=== PATIENT | male | born 1970 | race Caucasian/White ===

== ENCOUNTER 2021-03-27 07:43 | Outpatient (RCR) | payer OTHER, SELFPAY ==
[2021-03-27 08:07] VITALS: BP 169/96; PULSE 87; RESP 16; TEMP 36; BMI 45.1
--- NOTE | 2021-03-27 09:40 | PCM.WC.HP ---
History of Present Illness Date of Service: 03/27/21 Chief Complaint: Right leg wounds History of Wound: The patient is a pleasant 50-year-old male who presents to the wound healing center as a new patient for evaluation of right lower leg ulcers and cellulitis. He has a past medical history significant for obesity, hypertension, and hyperlipidemia. In recent years, he has lost over 100 pounds, and states that his hypertension has been well controlled without medication since his weight loss. He does not smoke tobacco, but uses chewing tobacco. 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 He states that in December 2020 while on vacation, he scratched his right lower leg on a paul which resulted in a very small laceration. In the week that followed, he was frequently swimming in the ocean. He later developed non-healing wounds of the right lower extremity. In recent weeks, he developed a rash of the right lower extremity, as well as blisters of the right lower extremity. He was started on Bactrim by his primary care provider (Dr. Kramer), but this was not of benefit for his cellulitis. He was then started on Augmentin and clindamycin. He has completed Augmentin. He has 1 more dose of clindamycin remaining, and feels this has been of most benefit for his cellulitis. He has not had any cultures of his right lower extremity wounds. He has been soaking his right lower extremity in Epsom salts. He has been applying Neosporin anti-itch ointment to his right lower extremity. He reports drainage from his right lower extremity, and that his socks are wet when removed. He reports eating a high-protein diet. He has not had any recent blood work completed, aside from a finger prick test done by his primary care provider, after which he was told he is non-diabetic; I presume this was an A1c, but no documentation is available. He has varicosities of the bilateral lower extremities. He does not use compression. He does not frequently elevate his legs. His job requirements involve frequent standing or dangling of legs. He sleeps in a bed at night. The patient denies fever, chills, general malaise, or poor appetite. The patient has not had increased redness, swelling, or purulent/malodorous drainage from affected area. 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 Home Medications ascorbic acid (vitamin C) [Vitamin C] 500 mg PO DAILY 03/27/21 [History Last Taken Unknown] garlic 1,000 mg PO DAILY 03/27/21 [History Last Taken Unknown] multivitamin [Multi-Daily] 1 tab PO DAILY 03/27/21 [History Last Taken Unknown] omega 7-[id number]-fish oil [Fish Oil] 1 cap PO DAILY 03/27/21 [History Last Taken Unknown] vitamin B complex [B Complex-Vitamin B12] 1 tab PO DAILY 03/27/21 [History Last Taken Unknown] Allergy/AdvReac Type Severity Reaction Status Date / Time No Known Allergies Allergy Verified 03/27/21 08:25 Social History Smoking Status: Never smoker ROS Constitutional Constitutional: Denies chills, fever(s) or night sweats Eyes Eyes: Denies change in vision or double vision ENT HEENT: Denies lip swelling or tongue swelling Cardiovascular Cardiovascular: Denies chest pain, leg edema or palpitations Respiratory/Chest Respiratory/Chest: Denies cough, shortness of breath at rest, shortness of breath with exertion or wheezing Gastrointestinal Gastrointestinal: Denies diarrhea, nausea or vomiting Genitourinary Genitourinary: Denies dysuria or hematuria Musculoskeletal Musculoskeletal: Denies abnormal gait, extremity pain, muscle weakness, numbness or tingling Integumentary Integumentary: Reports pruritus, rash, skin ulcer and wounds Neurologic Neurologic: Denies abnormal gait, abnormal speech or focal weakness Endocrine Endocrinology: Denies cold intolerance, heat intolerance, polydipsia or polyuria Hematologic/Lymphatic Hematologic/Lymphatic: Denies easy bleeding or easy bruising Vital Signs Vital Signs Vital Signs: 03/27/21 08:07 Temperature 96.8 F L Temperature Source Temporal Pulse Rate 87 Respiratory Rate 16 Blood Pressure 169/96 H Blood Pressure Mean 120 Blood Pressure Source Monitor Blood Pressure Position Sitting Blood Pressure Location Left Arm Oxygen Delivery Method Room Air Weight Weight: 315 lb Body Mass Index (BMI) 45.1 Physical Exam Const alert, no apparent distress and healthy appearing General Appearance: cooperative, comfortable and well kempt HEENT Head and Scalp: normocephalic and atraumatic Eyes EOMs intact bilaterally Neck supple and no JVD Resp normal respiratory effort, normal air movement and no use of accessory muscles Auscultation: clear to auscultation bilaterally; Negative for crackles, rales, rhonchi or wheezes Cardio regular rate and regular rhythm GI normal to inspection, nondistended, normoactive bowel sounds Extremity normal capillary refill, no joint enlargement, no calf tenderness and no pedal edema General Extremity: edema bilateral lower extremity Details: moderate (2+); Negative for clubbing or cyanosis Peripheral Pulses: Yes dorsalis pedis pulses present bilateral 2+ Skin General Skin Exam: dry skin and excoriation(s) Wounds: wounds noted No malodorous Wound Narrative: Large area of excoriation on the medial right lower leg, without any open ulcerations. Very erythematous and dry/scaly. Tender to palpation. Lateral right lower leg ulcer with subcutaneous layer exposed. No tunneling, undermining, or probing to bone. Moderate amount of slough and devitalized tissue present. No purulent/malodorous drainage. Mild periulcer erythema. Tenderness on debridement/palpation. Neuro oriented x3, moves all extremities and no focal motor deficits Psych mental status grossly normal, cooperative and affect normal Debridement Note Debridement Note Wound debrided: Lateral RLE Laterality: Right Type of Debridement: Excisional debridement Anesthesia Used: 4% Lidocaine Solution Depth: in the subcutaneous layer Percentage of wound debrided: 100 Instrument Used: 3mm curette Tissue Removed: Slough and devitalized tissue Severity: Fat Layer Exposed Amount of bleeding with debridement: Mild Bleeding Controlled with: Pressure Patient tolerated procedure: Patient tolerated procedure well Post-Debridement Measurements and Additional Note: Post-Debridement Measurements/Treatment - Nurse 1 - General Ulcer Assessment Start: 03/27/21 08:01 Freq: Status: Active Protocol: ASHLYN.TRUNG Activity Type Activity Date Activity User E-Sign Co-Sign Detail Recorded Client Recorded Date Recorded By Document 03/27/21 08:07 [facility] [id number] 03/27/21 08:21 [facility] 03/27/21 08:07 - Today's Visit Information Type of service Follow-up Visit (Physician/TALK SHOW HOST ) Arrival Mode Ambulatory Transfer Assistance None Patient Identification Verified (Name & Yes ) Patient Requires Transmission-Based No Precautions Height and Weight Height 5 ft 10 in Weight 315 lb Weight in Pounds 315.0 lbs Weight Measurement Method Estimated by Patient Body Mass Index (BMI) 45.1 BMI Classification Obese BSA - Allen 2.53 Vital Signs Temperature (97.8 F-99.1 F) 96.8 F L Temperature Source Temporal Pulse Rate (60-100) 87 Pulse Location Monitor Respiratory Rate (12-18) 16 Respiratory rate source Observation Oxygen Delivery Method Room Air Blood Pressure (90/60-120/80) 169/96 H Blood Pressure Mean 120 Source Monitor Position Sitting Blood Pressure Location Left Arm History Since Last Visit- (Skip if this is Patient's initial visit) Left Footwear Regular Shoe Right Footwear Regular Shoe Pain Scale: 0-10 Numeric Is Patient Pain Free? Yes Lower Extremity Assessment/ Foot Assessment/ Toe Nail Assessment Right -Posterior Tibial Palpable Yes -Posterior Tibial Doppler Inaudible -Dorsalis Pedis Doppler Multiphasic -Extremity Color Hyperpigmented, Hemosiderin -Hair Growth on Legs No -Hair Growth on Toes Yes -Temperature of Extremity Warm -Other Deformity No -Prior Foot Ulcer No -Charcot Joint No -Prior Amputation No -Thick No -Discolored No -Deformed No -Improper Length & Hygeine No Left -Posterior Tibial Palpable No -Posterior Tibial Doppler Multiphasic -Dorsalis Pedis Palpable Yes -Dorsalis Pedis Doppler Multiphasic -Extremity Color Hyperpigmented, Hemosiderin -Hair Growth on Legs No -Hair Growth on Toes Yes -Temperature of Extremity Warm -Other Deformity No -Prior Foot Ulcer No -Charcot Joint No -Prior Amputation No -Thick No -Discolored No -Deformed No -Improper Length & Hygeine No Neuropathy Assessment Feet - Top Side and Bottom <Entered> (a) Communication Assessment Preferred language Malay Lead Cargoman Required No Able to Read Yes Able to Write Yes Communication Tools None Right Hearing Abillity Normal Left Hearing Abillity Normal Visual Assistive Devices Glasses Teaching Assessment Preferences Verbal,Written Barriers to Learning None Readiness To Learn Excellent Willingness to Engage in Self Management High Activies Readiness to Engage in Self Management High Activities Anxiety Level Calm Cooperation Cooperative Perception Coherent Interest in Health Problem Asks Questions Education Importance Acknowledges Need Does Patient Smoke tobacco or other No substances Smoking Status Never smoker Is Patient Diabetic No Functional Assessment Recent Decline in Ability to Perform Denies Any Declines Culture/Jainism/Molding Manager Cultural/Jainism Needs that may affect No Treatment Plan Teaching: Wound Center *Welcome to the Wound Center -Person Taught Patient -Teaching Method Discussion -Response to teaching Verbalize understanding (a) 1 - + WC - Nurse 1 - General Ulcer Measurement Start: 03/27/21 08:01 Freq: Status: Active Protocol: Activity Type Activity Date Activity User E-Sign Co-Sign Detail Recorded Client Recorded Date Recorded By Document 03/27/21 08:07 [facility] [id number] 03/27/21 08:21 [facility] 03/27/21 08:07 Wound Center Nurse 1 #2- R MED ANKLE CLUSTER -Combined with other wound No -Current Size (cm) - Length 4.3 -Current Size (cm) - Width 4 -Current Size (cm) - Depth 0.1 -Total Square Cm 17.2 -Date of Last Picture (Recall this 03/27/21 field) -Photo Taken Yes -Epithelialization None Present -Tunneling No -Undermining/Tunneling No -Circular Undermining No -Exudate Amt None Present -Wound Margin Flat & Intact -Granulation Amt None Present (0 %) -Slough/Fibrin Yes -Necrosis Amt Large (67-100%) -Necrotic Tissue Type Adherent Slough -Texture (Sierra-wound Skin Appearance) Assessed, Scarring -Moisture (Sierra-wound Skin Appearance) Assessed -Color (Sierra-wound Skin Appearance) Assessed, Erythema -Temperature (Sierra-wound Skin No Abnormality Appearance) (Pt Warm) -Tenderness on Palpation (Sirera-wound Yes Skin Appearance) -Ulcer Cleansing Soap and Water -Foul Odor after Cleansing No -Anesthetic Used 4% Lidocaine Solution #1- R LAT ANKLE -Combined with other wound No -Current Size (cm) - Length 0.5 -Current Size (cm) - Width 0.6 -Current Size (cm) - Depth 0.1 -Total Square Cm 0.30 -Date of Last Picture (Recall this 03/27/21 field) -Photo Taken Yes -Epithelialization None Present -Tunneling No -Undermining/Tunneling No -Circular Undermining No -Exudate Amt Small -Exudate Type Serosanguineous -Wound Margin Distinct, Outline Attached -Granulation Amt Small (1-33%) -Granulation Quality Red -Slough/Fibrin Yes -Necrosis Amt Medium (34-66%) -Necrotic Tissue Type Adherent Slough -Texture (Sierra-wound Skin Appearance) Assessed, Scarring -Moisture (Sierra-wound Skin Appearance) Assessed,Dry/ Scaly -Color (Sierra-wound Skin Appearance) Assessed, Erythema -Temperature (Sierra-wound Skin No Abnormality Appearance) (Pt Warm) -Tenderness on Palpation (Sierra-wound No Skin Appearance) -Ulcer Cleansing Soap and Water -Foul Odor after Cleansing No -Anesthetic Used 4% Lidocaine Solution Lower Limb Edema Present Yes Right Calf (cm) 38 Right Ankle (cm) 32 Left Calf (cm) 45 Left Ankle (cm) 28 - Nurse 3 - General Ulcer D/C NN Start: 03/27/21 08:01 Freq: Status: Active Protocol: Activity Type Activity Date Activity User E-Sign Co-Sign Detail Recorded Client Recorded Date Recorded By Document 03/27/21 09:11 [facility] [id number] 03/27/21 09:12 [facility] 03/27/21 09:11 Wound Care Nurse 3 #2- R MED ANKLE CLUSTER -Other Dressing UNNA PER ML [facility] PSYCHIATR[facility] NURSE #1- R LAT ANKLE -Ulcer Cleansing Rinsed/ Irrigated with Saline -Foul Odor after Cleansing No -Primary Dressing Applied Aquacel AG 4x4 -Other Dressing UNNA PER ML [facility] PSYCHIATRIC NURSE -Aquacel AG 4x4 1 Right -Multi-Layered Wrap Application Unna Boot - Right ($) -Compression Wrap Unna Boot ($) ( single) Treatment Response Procedure Tolerated Well - Visit Discharge Discharge Condition Stable Ambulatory Status Ambulatory Transportation Private Auto Charges/Coding Visit Charges Office Visits / Consults: [id number] OV L4 New Procedures Integumentary [id number]: [id number] Mercedes subq tissue 20 sq cm/< Assessment/Plan Assessment/Plan (1) 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: CODE(S): I83.019 - Varicose veins of right lower extremity with ulcer of unspecified site; L97.919 - Non-pressure chronic ulcer of unspecified part of right lower leg with unspecified severity (2) Peripheral vascular disease: CODE(S): I73.9 - Peripheral vascular disease, unspecified (3) Excoriation of right lower leg: CODE(S): S80.811A - Abrasion, right lower leg, initial encounter QUALIFIERS: Encounter type: sequela Qualified Code(s): S80.811S - Abrasion, right lower leg, sequela (4) Cellulitis of right lower leg: CODE(S): L03.115 - Cellulitis of right lower limb (5) Tobacco use: CODE(S): Z72.0 - Tobacco use PLAN: Debridement performed today in clinic as annotated above. Aquacel Ag applied to the lateral right lower leg ulcer. Unna boot applied to the right lower extremity. Given the duration of the wound and failure of the wound to respond to standard wound care, we will apply for advanced skin substitutes EpiFix). At home wound-care instructions: Keep Unna boot clean and dry. Cover when showering. If anytime the Unna boot becomes tight or uncomfortable, elevate the leg. If you have numbness or tingling in the toes, or discoloration of the toes that does not resolve with elevation of the leg, contact the wound healing center and remove the Unna boot. Compression: Unna boot, as above Off-loading: The patient was instructed to avoid pressure and friction on the affected areas. Reposition every 2 hours at minimum. Avoid prolonged standing and/or dangling of legs. When seated, feet should be elevated at chest level. Frequent ambulation is encouraged. Diet: Patient encouraged to increase protein intake while taking caution to avoid high carbohydrate and/or sugar intake. Tobacco use: The risks of tobacco use and benefits of tobacco cessation were discussed with the patient today. The patient is encouraged to quit tobacco use. If tobacco cessation aids are desired, the patient should contact their primary care provider to discuss appropriate options. Labs/cultures/imaging: Cultures ordered and collected today. Routine baseline lab work ordered (CBC, CMP, CRP, ESR). Venous and arterial studies ordered. Follow-up: Return on Tuesday for a nurse visit to have Unna boots changed. Return to clinic in 1 week for re-evaluation. Return sooner or report to the emergency room should symptoms worsen, or new symptoms arise.
[2021-03-27 10:40] LABS: Erythrocyte Sedimentation Rate 10 mm/hr (0-20)
[2021-03-27 10:41] LABS: Absolute Lymphocyte Count 1.72 X10^3/uL (0.83-4.51); Absolute Neutrophil Count 4.7 X10^3/uL (2.0-7.7); Basophil# 0.03 X10^3/uL; Basophil% 0.4 % (0-1); Eosinophil# 0.05 X10^3/uL; Eosinophils% 0.7 % (0-5); Hematocrit 45.4 % (40-54); Hemoglobin 15.1 g/dL (13.0-16.5); Lymphocyte # 1.72 X10^3/ul (0.83-4.51); Lymphocyte % 24.5 % (19-41); Mean Corp Hgb Conc 33.3 g/dL (32-36); Mean Corpuscular Hgb 31.5 pg (27.0-32.0); Mean Corpuscular Volume 94.6 fL (80-94); Mean Platelet Vol. 9.7 fl (6.2-12.0); Monocyte# 0.48 X10^3/uL; Monocyte% 6.8 % (0-10); NRBC Flagged by Analyzer 0 % (0-5); Neutrophil # 4.72 X10^3/uL (2.7-7.7); Neutrophil % 67.5 % (47-70); Platelet Count 218 K/mm3 (150-450); RBC Distribution Width CV 12.5 % (11.6-14.6); RBC Distribution Width SD 43.7 fl (35.1-43.9)
[2021-03-27 11:05] LABS: AST(SGOT) 26 U/L (15-37); Alanine Aminotransfer ALT/SGPT 31 U/L (16-61); Albumin, Serum 3.8 g/dL (3.2-5.0); Alkaline Phosphatase 78 U/L (45-117); Anion Gap 6 (5-15); BUN 21 mg/dL (7-18); BUN/Creat Ratio 24.9 RATIO (10-20); Calcium,Total 9.2 mg/dL (8.5-10.1); Chloride 105 mmol/L (98-107); Creatinine, Serum 0.84 mg/dL (0.70-1.30); EST Glomerular Filtration Rate 101 mL/min (>60); Est Glom Filt Rate - Afr Amer 123 mL/min (>60); Estimated Creatinine Clearance 107.42 ml/min; Globulin 3.8 g/dL (2.2-4.2); Glucose 115 mg/dL (74-106); Potassium 4.4 mmol/L (3.5-5.1); Protein, Total 7.6 g/dL (6.4-8.2); Sodium Level 136 mmol/L (136-145)
== END 2021-03-29 23:59 ==
LOC: WC 07:43
PROVIDERS: Referring Provider Nurse Practitioner Family; Visit Provider Nurse Practitioner Family
DX: I83.018 Varicose veins of right lower extremity with ulcer other part of lower leg (principal); L97.812 Non-pressure chronic ulcer of other part of right lower leg with fat layer exposed; L03.115 Cellulitis of right lower limb; S80.811S Abrasion, right lower leg, sequela; W22.8XXS Striking against or struck by other objects, sequela; I73.9 Peripheral vascular disease, unspecified; I10 Essential (primary) hypertension; E78.5 Hyperlipidemia, unspecified; F17.220 Nicotine dependence, chewing tobacco, uncomplicated; E66.9 Obesity, unspecified; Z68.42 Body mass index [BMI] 45.0-49.9, adult; Z79.899 Other long term (current) drug therapy
CPT/HCPCS: 11042; 29580; 36415; 80053; 85025; 85652; 87070; 87075; 87205; 99213; G0463

== ENCOUNTER → 2021-04-10 12:20 | Outpatient (CLI) | payer OTHER, SELFPAY ==
--- NOTE | 2021-04-10 12:01 | PCM.WC.PN ---
History of Present Illness Date of Service: 04/10/21 Chief Complaint: Right leg wounds History of Wound: The patient is a pleasant 50-year-old male who presents to the wound healing center as a new patient for evaluation of right lower leg ulcers and cellulitis. He has a past medical history significant for obesity, hypertension, and hyperlipidemia. In recent years, he has lost over 100 pounds, and states that his hypertension has been well controlled without medication since his weight loss. He does not smoke tobacco, but uses chewing tobacco. 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 He states that in December 2020 while on vacation, he scratched his right lower leg on a paul which resulted in a very small laceration. In the week that followed, he was frequently swimming in the ocean. He later developed non-healing wounds of the right lower extremity. In recent weeks, he developed a rash of the right lower extremity, as well as blisters of the right lower extremity. He was started on Bactrim by his primary care provider (Dr. Kramer), but this was not of benefit for his cellulitis. He was then started on Augmentin and clindamycin. He has completed Augmentin. He has 1 more dose of clindamycin remaining, and feels this has been of most benefit for his cellulitis. He has not had any cultures of his right lower extremity wounds. He has been soaking his right lower extremity in Epsom salts. He has been applying Neosporin anti-itch ointment to his right lower extremity. He reports drainage from his right lower extremity, and that his socks are wet when removed. He reports eating a high-protein diet. He has not had any recent blood work completed, aside from a finger prick test done by his primary care provider, after which he was told he is non-diabetic; I presume this was an A1c, but no documentation is available. He has varicosities of the bilateral lower extremities. He does not use compression. He does not frequently elevate his legs. His job requirements involve frequent standing or dangling of legs. He sleeps in a bed at night. The patient denies fever, chills, general malaise, or poor appetite. The patient has not had increased redness, swelling, or purulent/malodorous drainage from affected area. Progress of Wound: The patient's wound has improved in size and appearance. He has tolerated Aquacel Ag and Unna boot well. He feels the pain in his right medial ankle is improved with the compression of the Unna boot. The area of excoriation and erythema on his right medial ankle is relatively unchanged in the past week. The patient denies fever, chills, general malaise, or poor appetite. The patient has not had increased redness, swelling, or purulent/malodorous drainage from affected area. He has vascular studies ordered today at 1 PM. Charges/Coding Procedures Integumentary 111xxx-113xx: [id number] Mercedes subq tissue 20 sq cm/< Physical Exam Const alert, no apparent distress and healthy appearing General Appearance: cooperative, comfortable and well kempt HEENT Head and Scalp: normocephalic and atraumatic Resp normal respiratory effort Extremity normal capillary refill, no joint enlargement and no calf tenderness General Extremity: edema right lower extremity trace; Negative for clubbing or cyanosis Peripheral Pulses: Yes dorsalis pedis pulses present right 2+ Skin General Skin Exam: dry skin and excoriation(s) Wounds: wounds noted No malodorous Wound Narrative: Large area of excoriation on the medial right lower leg, without any open ulcerations. Erythematous and dry/scaly, stable in the past week. Lateral right lower leg ulcer with subcutaneous layer exposed. No tunneling, undermining, or probing to bone. Moderate amount of slough and devitalized tissue present. No purulent/malodorous drainage. Mild periulcer erythema. Tenderness on debridement/palpation. 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: CODE(S): I83.019 - Varicose veins of right lower extremity with ulcer of unspecified site; L97.919 - Non-pressure chronic ulcer of unspecified part of right lower leg with unspecified severity (2) Peripheral vascular disease: CODE(S): I73.9 - Peripheral vascular disease, unspecified (3) Excoriation of right lower leg: CODE(S): S80.811A - Abrasion, right lower leg, initial encounter QUALIFIERS: Encounter type: sequela Qualified Code(s): S80.811S - Abrasion, right lower leg, sequela (4) Cellulitis of right lower leg: CODE(S): L03.115 - Cellulitis of right lower limb (5) Tobacco use: CODE(S): Z72.0 - Tobacco use PLAN: Debridement performed today in clinic as annotated above. Aquacel Ag applied to the lateral right lower leg ulcer. Double Tubigrips applied to the bilateral lower extremities. Given the duration of the wound and failure of the wound to respond to standard wound care, we have applied for advanced skin substitutes (EpiFix); this was approved per Thaddeus Hickey CM. At home wound-care instructions: Cleanse the right lower extremity with antibacterial soap and water, rinse and dry thoroughly, prior to each daily dressing change. After cleansing, apply Aquacel Ag to the lateral RLE ulcer. Apply triamcinolone ointment in a thin layer to the medial RLE excoriation and rash, twice daily. Compression: Wear double Tubigrip's daily. These may be removed at bedtime when feet are elevated. These should be reapplied prior to getting out of bed in the morning. Off-loading: The patient was instructed to avoid pressure and friction on the affected areas. Reposition every 2 hours at minimum. Avoid prolonged standing and/or dangling of legs. When seated, feet should be elevated at chest level. Frequent ambulation is encouraged. Diet: Patient encouraged to increase protein intake while taking caution to avoid high carbohydrate and/or sugar intake. Tobacco use: The risks of tobacco use and benefits of tobacco cessation have been discussed with the patient. The patient was encouraged to quit tobacco use. If tobacco cessation aids are desired, the patient should contact their primary care provider to discuss appropriate options. Labs/cultures/imaging: Labs from 03/27/2021 were reviewed (CBCD, CMP, ESR): Glucose 115 (nonfasting), BUN 21, otherwise unremarkable Culture results from 03/27/2021 revealed no aerobic or anaerobic growth. He has vascular studies scheduled for today at 1 PM. Follow-up: Return to clinic in 1 week for re-evaluation. Return sooner or report to the emergency room should symptoms worsen, or new symptoms arise. Note: [employer] speech recognition elementary school tutor software was used to create portions of this document. Sound-alike and misspelled words, as well as other elementary school tutor errors may be contained in the documentation.
== END | disposition home or self-care (01) ==
PROVIDERS: Referring Provider Nurse Practitioner Family; Visit Provider Nurse Practitioner Family
DX: I73.9 Peripheral vascular disease, unspecified (principal); L97.919 Non-pressure chronic ulcer of unspecified part of right lower leg with unspecified severity

== ENCOUNTER 2021-04-17 10:30 | Outpatient (RCR) | payer OTHER, SELFPAY ==
[2021-03-30 00:34] VITALS: BP 169/96; PULSE 87; RESP 16; TEMP 36; BMI 45.1
[2021-03-31 13:02] VITALS: BP 139/78; RESP 20; TEMP 36.6; BMI 45.1
[2021-04-03 08:07] VITALS: BP 154/88; PULSE 73; TEMP 36; BMI 45.1
--- NOTE | 2021-04-03 09:14 | PCM.WC.PN ---
History of Present Illness Date of Service: 04/03/21 Chief Complaint: Right leg wounds History of Wound: The patient is a pleasant 50-year-old male who presents to the wound healing center as a new patient for evaluation of right lower leg ulcers and cellulitis. He has a past medical history significant for obesity, hypertension, and hyperlipidemia. In recent years, he has lost over 100 pounds, and states that his hypertension has been well controlled without medication since his weight loss. He does not smoke tobacco, but uses chewing tobacco. 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 He states that in December 2020 while on vacation, he scratched his right lower leg on a paul which resulted in a very small laceration. In the week that followed, he was frequently swimming in the ocean. He later developed non-healing wounds of the right lower extremity. In recent weeks, he developed a rash of the right lower extremity, as well as blisters of the right lower extremity. He was started on Bactrim by his primary care provider (Dr. Kramer), but this was not of benefit for his cellulitis. He was then started on Augmentin and clindamycin. He has completed Augmentin. He has 1 more dose of clindamycin remaining, and feels this has been of most benefit for his cellulitis. He has not had any cultures of his right lower extremity wounds. He has been soaking his right lower extremity in Epsom salts. He has been applying Neosporin anti-itch ointment to his right lower extremity. He reports drainage from his right lower extremity, and that his socks are wet when removed. He reports eating a high-protein diet. He has not had any recent blood work completed, aside from a finger prick test done by his primary care provider, after which he was told he is non-diabetic; I presume this was an A1c, but no documentation is available. He has varicosities of the bilateral lower extremities. He does not use compression. He does not frequently elevate his legs. His job requirements involve frequent standing or dangling of legs. He sleeps in a bed at night. The patient denies fever, chills, general malaise, or poor appetite. The patient has not had increased redness, swelling, or purulent/malodorous drainage from affected area. Progress of Wound: The patient has been compliant with the use of Aquacel Ag and right lower extremity Unna boot. He has improvement in the size and appearance of his wound and medial RLE excoriation today. He denies, fever, chills, poor appetite, or general malaise. He feels his pain in his right lower extremity has improved in the past week. His labs from 03/27/2021 were reviewed (CBCD, CMP, ESR): Glucose 115 (nonfasting), BUN 21, otherwise unremarkable Culture results from 03/27/2021 revealed no aerobic or anaerobic growth. He has vascular studies scheduled for next 04/10/2021. Objective Data Objective Data Vital Signs: Vital Signs Temp Pulse Resp BP 96.8 F L 73 20 H 154/88 H 04/03/21 08:07 04/03/21 08:07 03/31/21 13:02 04/03/21 08:07 Weight: 315 lb Body Mass Index (BMI) 45.1 Charges/Coding Procedures Integumentary 111xxx-113xx: [id number] Mercedes subq tissue 20 sq cm/< Physical Exam Const alert, no apparent distress and healthy appearing General Appearance: cooperative, comfortable and well kempt HEENT Head and Scalp: normocephalic and atraumatic Resp normal respiratory effort Extremity normal capillary refill, no joint enlargement and no calf tenderness General Extremity: edema right lower extremity trace; Negative for clubbing or cyanosis Peripheral Pulses: Yes dorsalis pedis pulses present right 2+ Skin General Skin Exam: dry skin and excoriation(s) Wounds: wounds noted No malodorous Wound Narrative: Large area of excoriation on the medial right lower leg, without any open ulcerations. Erythematous and dry/scaly, though significantly improved this week. Less tender to palpation this week. Lateral right lower leg ulcer with subcutaneous layer exposed. No tunneling, undermining, or probing to bone. Moderate amount of slough and devitalized tissue present. No purulent/malodorous drainage. Mild periulcer erythema. Tenderness on debridement/palpation. Psych mental status grossly normal, cooperative and affect normal Debridement Note Debridement Note Wound debrided: Lateral RLE Laterality: Right Type of Debridement: Excisional debridement Anesthesia Used: 5% Lidocaine Gel Depth: in the subcutaneous layer Percentage of wound debrided: 100 Instrument Used: 3mm curette Tissue Removed: Slough and devitalized tissue Severity: Fat Layer Exposed Amount of bleeding with debridement: Mild Bleeding Controlled with: Pressure Patient tolerated procedure: Patient tolerated procedure well Post-Debridement Measurements and Additional Note: Post-Debridement Measurements/Treatment - Nurse 1 - General Ulcer Assessment Start: 03/31/21 13:01 Freq: Status: Active Protocol: MUKESH Activity Type Activity Date Activity User E-Sign Co-Sign Detail Recorded Client Recorded Date Recorded By Document 03/31/21 13:02 DL [id number] 03/31/21 13:07 DL Document 04/03/21 08:07 KR Desktop 04/03/21 08:14 KR 03/31/21 04/03/21 13:02 08:07 - Today's Visit Information Type of service Nurse-only Follow-up Visit Visit (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/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 ) Arrival Mode Ambulatory Ambulatory Transfer Assistance None Patient Identification Verified (Name & Yes Yes ) Patient Requires Transmission-Based No Precautions Height and Weight Body Mass Index (BMI) 45.1 45.1 BMI Classification Obese Obese Vital Signs Temperature (97.8 F-99.1 F) 98 F 96.8 F L Temperature Source Temporal Temporal Pulse Rate (60-100) 73 Pulse Location Monitor Respiratory Rate (12-18) 20 H Respiratory rate source Observation Blood Pressure (90/60-120/80) 139/78 H 154/88 H Blood Pressure Mean (mm Hg) 98 110 Source Monitor Monitor Position Semi-Fowlers Blood Pressure Location Left Arm History Since Last Visit- (Skip if this is Patient's initial visit) Have you changed medications since your No No last visit? Any new allergies or adverse reactions No No Had a fall/change in ADL's that may No No increase risk of falls Signs or symptoms of abuse and/or No No neglect since last visit Have you been in the hospital since your No No last visit? Has dressing in place as prescribed No Yes Has compression in place as prescribed Yes Yes Has offloadiing in place as prescribed N/A N/A Experienced any changes in pain level or No No management Left Footwear Regular Shoe Regular Shoe Right Footwear Regular Shoe Regular Shoe Pain Scale: 0-10 Numeric Is Patient Pain Free? Yes Yes [facility] Nurse 1 - General Ulcer Measurement Start: 03/31/21 13:01 Freq: Status: Active Protocol: Activity Type Activity Date Activity User E-Sign Co-Sign Detail Recorded Client Recorded Date Recorded By Document 03/31/21 13:02 DL [id number] 03/31/21 13:07 DL Document 04/03/21 08:07 KR Desktop 04/03/21 08:14 KR 03/31/21 04/03/21 13:02 08:07 Wound Center Nurse 1 #1- R LAT ANKLE -Current Size (cm) - Length 0.3 -Current Size (cm) - Width 0.6 -Current Size (cm) - Depth 0.1 -Total Square Cm 0.18 -Photo Taken No -Exudate Amt Small Small -Exudate Type Serosanguineous Serosanguineous -Wound Margin Distinct, Distinct, Outline Outline Attached Attached -Granulation Amt Large (67-100%) Small (1-33%) -Granulation Quality Red [place] -Necrosis Amt Small (1-33%) Small (1-33%) -Necrotic Tissue Type Adherent Slough Adherent Slough -Structure Exposed N/A -Texture (Sierra-wound Skin Appearance) Excoriation Assessed, Scarring -Moisture (Sierra-wound Skin Appearance) Dry/Scaly No Abnormality, Assessed -Color (Sierra-wound Skin Appearance) No Abnormality No Abnormality, Assessed -Temperature (Sierra-wound Skin No Abnormality No Abnormality Appearance) (Pt Warm) (Pt Warm) -Tenderness on Palpation (Sierra-wound No No Skin Appearance) -Ulcer Cleansing Soap and Water Soap and Water -Foul Odor after Cleansing No No -Anesthetic Used 5% Lidocaine Gel Right Calf (cm) 46.8 46 Right Ankle (cm) 26.8 26 WC - Nurse 3 - General Ulcer D/C NN Start: 03/31/21 13:01 Freq: Status: Active Protocol: Activity Type Activity Date Activity User E-Sign Co-Sign Detail Recorded Client Recorded Date Recorded By Document 03/31/21 13:02 DL [id number] 03/31/21 13:07 DL Document 04/03/21 08:44 ML [id number] 04/03/21 08:44 ML 03/31/21 04/03/21 13:02 08:44 Vital Signs Temperature (97.8 F-99.1 F) 98 F Temperature Source Temporal Respiratory Rate (12-18) 20 H Respiratory rate source Observation Blood Pressure (90/60-120/80) 139/78 H Blood Pressure Mean (mm Hg) 98 Source Monitor Pain Scale: 0-10 Numeric Is Patient Pain Free? Yes Yes Wound Care Nurse 3 #1- R LAT ANKLE -Ulcer Cleansing Soap and Water Rinsed/ Irrigated with Saline -Foul Odor after Cleansing No -Primary Dressing Applied Aquacel AG 4x4 -Other Dressing aquacel ag -Other Covering unna boot -Aquacel AG 4x4 0 Right -Multi-Layered Wrap Application Unna Boot - Unna Boot - Right ($) Right ($) Treatment Response Procedure Tolerated Well WC - Visit Discharge Discharge Condition Stable Stable Ambulatory Status Ambulatory Ambulatory Transportation Private Auto Private Auto Medication Reconcilliation completed & No provided to patient/care provider Clinical Summary of Care Provided Yes Assessment/Plan Assessment/Plan (1) 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: CODE(S): I83.019 - Varicose veins of right lower extremity with ulcer of unspecified site; L97.919 - Non-pressure chronic ulcer of unspecified part of right lower leg with unspecified severity (2) Peripheral vascular disease: CODE(S): I73.9 - Peripheral vascular disease, unspecified (3) Excoriation of right lower leg: CODE(S): S80.811A - Abrasion, right lower leg, initial encounter QUALIFIERS: Encounter type: sequela Qualified Code(s): S80.811S - Abrasion, right lower leg, sequela (4) Cellulitis of right lower leg: CODE(S): L03.115 - Cellulitis of right lower limb (5) Tobacco use: CODE(S): Z72.0 - Tobacco use PLAN: Debridement performed today in clinic as annotated above. Aquacel Ag applied to the lateral right lower leg ulcer. Unna boot applied to the right lower extremity. Given the duration of the wound and failure of the wound to respond to standard wound care, we have applied for advanced skin substitutes (EpiFix); approval status unknown at this time. At home wound-care instructions: Keep Unna boot clean and dry. Cover when showering. If anytime the Unna boot becomes tight or uncomfortable, elevate the leg. If you have numbness or tingling in the toes, or discoloration of the toes that does not resolve with elevation of the leg, contact the wound healing center and remove the Unna boot. Otherwise, remove the Unna boot on Tuesday morning and shower prior to your appointment at the wound healing center. (Right lower extremity will be left unwrapped next Tuesday for vascular studies). Compression: Unna boot, as above Off-loading: The patient was instructed to avoid pressure and friction on the affected areas. Reposition every 2 hours at minimum. Avoid prolonged standing and/or dangling of legs. When seated, feet should be elevated at chest level. Frequent ambulation is encouraged. Diet: Patient encouraged to increase protein intake while taking caution to avoid high carbohydrate and/or sugar intake. Tobacco use: The risks of tobacco use and benefits of tobacco cessation have been discussed with the patient. The patient was encouraged to quit tobacco use. If tobacco cessation aids are desired, the patient should contact their primary care provider to discuss appropriate options. Labs/cultures/imaging: Labs from 03/27/2021 were reviewed (CBCD, CMP, ESR): Glucose 115 (nonfasting), BUN 21, otherwise unremarkable Culture results from 03/27/2021 revealed no aerobic or anaerobic growth. He has vascular studies scheduled for next 04/10/2021. Follow-up: Return to clinic in 1 week for re-evaluation. Return sooner or report to the emergency room should symptoms worsen, or new symptoms arise. Note: [employer] speech recognition enterprise integration architect software was used to create portions of this document. Sound-alike and misspelled words, as well as other enterprise integration architect errors may be contained in the documentation.
[2021-04-10 10:54] VITALS: TEMP 36.3; BMI 45.1
--- NOTE | 2021-04-10 12:35 | ART_ITS ---
Reason For Study: Ulcer Procedure A bilateral lower extremity continuous wave Doppler with analog waveform analysis,segmental pressures,and ankle brachial indexes without exercise. Left Segmental Pressures Left brachial= 137mmHg. Left posterior tibial artery = 160mmHg. Left dorsalis pedis artery = 158mmHg. Left digit = 170 mmHg. The left dorsalis pedis waveforms are triphasic. The left posterior tibial artery waveforms are triphasic. Right Segmental Pressures Right brachial= 136mmHg. Right posterior tibial artery = 172mmHg. Right dorsalis pedis artery = 180mmHg. Right digit = 146 mmHg. The right dorsalis pedis waveforms are triphasic. The right posterior tibial artery waveforms are triphasic. Indices The right ankle brachial index by the dorsalis pedis is 1.31. The right ankle brachial index by the posterior tibial artery is 1.26. The right digital-brachial index is 1.07. The left ankle brachial index by the dorsalis pedis is 1.15. The left ankle brachial index by the posterior tibial artery is 1.17. The left digital-brachial index is 1.25. VL/Lower Ext Art Exam w/o Exercis Interpretation Summary Triphasic Doppler waveforms are noted at ankle level bilaterally. Pulse-volume recordings appear satisfactory at all levels bilaterally, including low thigh, calf, ankle, and d igital levels. Resting ankle-brachial indices are normal bilaterally. Digital-brachial indices are normal bilaterally. There is no evidence of significant arterial occlusive disease in the lower ext remities bilaterally. Ordering Physician: Abby Kelsey Performed By: Kathy Farrell RVT
--- NOTE | 2021-04-10 12:35 | VDLE_ITS ---
Reason For Study: Ulcer RIGHT LEFT CFV is compressible, spontaneous, phasic, CFV is compressible, spontaneous, phasic, competent and demonstrates normal competent, and demonstrates normal augmentation. augmentation. FV is compressible, spontaneous, phasic, FV is compressible, spontaneous, phasic, competent and demonstrates normal competent and demonstrates normal augmentation. augmentation. POP V is compressible, spontaneous, phasic, POP V is compressible, spontaneous, phasic, competent and demonstrates normal competent and demonstrates normal augmentation. augmentation. T/P Trunk is compressible. T/P Trunk is compressible. PTV is compressible. PTV is compressible. RT PerV is compressible. LT PerV is compressible. SFJ is competent and measures 1.23 x 1.41 cm. SFJ is competent and measures 1.46 x 1.52 cm. GSV proximal thigh measures 0.76 x 0.76 cm. GSV proximal thigh measures 0.85 x 0.86 cm. GSV above knee is INCOMPETENT for greater GSV at knee measures 0.47 x 0.50 cm. than 0.5 seconds. GSV is competent throughout. GSV at knee measures 0.39 x 0.36 cm. SSV at junction is competent and measures GSV below knee is competent. 0.34 x 0.37 cm. SSV at junction is competent and measures 0.33 x 0.37 cm. Procedure This is a venous duplex using B-mode, color flow and spectral Doppler. Exam performed in department. A preliminary report was called and/or faxed to . VL/Venous Duplex US - Shamir Extrem Interpretation Summary Deep veins of the lower extremities are bilaterally patent and compressible seg mentally. There is no evidence of deep vein thrombosis on either side. Valvular competence appears in tact within the proximal deep venous systems bilaterally. The great saphenous veins appear bila terally patent and compressible segmentally. Sapheno-femoral junctions are bilaterally competent . The right great saphenous vein appears incompetent above the knee. The right great saphenous ve in appears competent below the knee. The left great saphenous vein appears segmentally competent. Sm all saphenous veins are patent and competent bilaterally. Ordering Physician: Abby Kelsey Performed By: Kathy Farrell RVT
[2021-04-17 10:41] VITALS: BP 163/99; PULSE 82; TEMP 36.6; BMI 45.1
--- NOTE | 2021-04-17 14:55 | PN.PCM_ITS ---
History of Present Illness Date of Service: 04/17/21 Chief Complaint: Right leg wounds History of Wound: The patient is a pleasant 50-year-old male who presents to the wound healing center as a new patient for evaluation of right lower leg ulcers and cellulitis. He has a past medical history significant for obesity, hypertension, and hyperlipidemia. In recent years, he has lost over 100 pounds, and states that his hypertension has been well controlled without medication since his weight loss. He does not smoke tobacco, but uses chewing tobacco. 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 He states that in December 2020 while on vacation, he scratched his right lower leg on a paul which resulted in a very small laceration. In the week that followed, he was frequently swimming in the ocean. He later developed non- healing wounds of the right lower extremity. In recent weeks, he developed a rash of the right lower extremity, as well as blisters of the right lower extremity. He was started on Bactrim by his primary care provider (Dr. Kramer), but this was not of benefit for his cellulitis. He was then started on Augmentin and clindamycin. He has completed Augmentin. He has 1 more dose of clindamycin remaining, and feels this has been of most benefit for his cellulitis. He has not had any cultures of his right lower extremity wounds. He has been soaking his right lower extremity in Epsom salts. He has been applying Neosporin anti-itch ointment to his right lower extremity. He reports drainage from his right lower extremity, and that his socks are wet when removed. He reports eating a high-protein diet. He has not had any recent blood work completed, aside from a finger prick test done by his primary care provider, after which he was told he is non-diabetic; I presume this was an A1c, but no documentation is available. He has varicosities of the bilateral lower extremities. He does not use compression. He does not frequently elevate his legs. His job requirements involve frequent standing or dangling of legs. He sleeps in a bed at night. The patient denies fever, chills, general malaise, or poor appetite. The patient has not had increased redness, swelling, or purulent/malodorous drainage from affected area. Progress of Wound: The patient's right lower extremity ulcer is healed today. The medial RLE excoriation has significantly improved with the use of tri amcinolone ointment. He denies, fever, chills, poor appetite, or general malaise. He feels his pain in his right lower extremity has improved in the past week. Bilateral lower extremity arterial studies on 04/10/2021 revealed the following: No evidence of significant arterial occlusive disease in the lower extremities bilaterally. Bilateral lower extremity venous studies on 04/10/2021 revealed the following: No evidence of DVT. Deep veins of BLE are patent and compressible segmentally. The right great saphenous vein appears incompetent above the knee. Objective Data Objective Data Vital Signs: Vital Signs Temp Pulse Resp BP 97.9 F 82 20 H 163/99 H 04/17/21 10:41 04/17/21 10:41 03/31/21 13:02 04/17/21 10:41 Weight: 315 lb Body Mass Index (BMI) 45.1 Charges/Coding Visit Charges Office Visits / Consults: 48816 OV L3 Est Physical Exam Const alert, no apparent distress and healthy appearing General Appearance: cooperative, comfortable and well kempt HEENT Head and Scalp: normocephalic and atraumatic Resp normal respiratory effort Extremity normal capillary refill, no joint enlargement and no calf tenderness General Extremity: edema right lower extremity trace; Negative for clubbing or cyanosis Peripheral Pulses: Yes dorsalis pedis pulses present right 2+ Skin General Skin Exam: dry skin and excoriation(s) Wounds: wounds noted No malodorous Wound Narrative: Large area of excoriation on the medial right lower leg has resolved. Lateral right lower leg ulcer is healed today. 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: CODE(S): I83.019 - Varicose veins of right lower extremity with ulcer of unspecified site; L97.919 - Non-pressure chronic ulcer of unspecified part of right lower leg with unspecified severity (2) Peripheral vascular disease: CODE(S): I73.9 - Peripheral vascular disease, unspecified (3) Excoriation of right lower leg: CODE(S): S80.811A - Abrasion, right lower leg, initial encounter QUALIFIERS: Encounter type: sequela Qualified Code(s): S80.811S - Abrasion, right lower leg, sequela (4) Cellulitis of right lower leg: CODE(S): L03.115 - Cellulitis of right lower limb (5) Tobacco use: CODE(S): Z72.0 - Tobacco use PLAN: The patient's lateral RLE ulcer is healed today. The medial RLE excoriation is resolved today. No evidence of cellulitis today. He will be discharged from the wound healing center. He may continue to use triamcinolone ointment as prescribed for the next 4 to 7 days, but was advised not to use triamcinolone ointment beyond a total of 2 weeks. As preventive measures: Continue to avoid friction or prolonged pressure against the previously affected areas. The daily use of compression stockings is recommended. Avoid prolonged standing and/or dangling of legs. When seated, feet should be elevated at chest level whenever possible. Frequent ambulation is encouraged. Follow-up: Return to the wound healing center on an as-needed basis should wounds recur or new wounds develop. Note: [email or web address] speech recognition orthotics prosthetics technician software was used to create portions of this document. Sound-alike and misspelled words, as well as other orthotics prosthetics technician errors may be contained in the documentation.
== END 2021-04-17 11:35 | disposition home or self-care (01) ==
LOC: WC 10:30
PROVIDERS: Referring Provider Nurse Practitioner Family; Visit Provider Nurse Practitioner Family
DX: I83.018 Varicose veins of right lower extremity with ulcer other part of lower leg (principal); L97.812 Non-pressure chronic ulcer of other part of right lower leg with fat layer exposed; R60.0 Localized edema; I73.9 Peripheral vascular disease, unspecified; L03.115 Cellulitis of right lower limb; S80.811S Abrasion, right lower leg, sequela; W22.8XXS Striking against or struck by other objects, sequela; I83.92 Asymptomatic varicose veins of left lower extremity; I10 Essential (primary) hypertension; E78.5 Hyperlipidemia, unspecified; E66.9 Obesity, unspecified; Z68.42 Body mass index [BMI] 45.0-49.9, adult; F17.220 Nicotine dependence, chewing tobacco, uncomplicated; Z79.899 Other long term (current) drug therapy
CPT/HCPCS: 11042; 29580; 93923; 93970; 99213; G0463